=== PATIENT | male | born 1935 | race Caucasian/White ===

== ENCOUNTER 2018-04-22 08:43 | Inpatient (IN) | payer MEDICARE, MEDICAID ==
[~2018-04-22] VITALS: Ht 167.6 cm; Wt 79.4 kg
--- NOTE | 2018-04-22 08:50 | NUR ---
Pt is Farsi speaking, daughter translate.
--- NOTE | 2018-04-22 08:50 | NUR ---
Dr Lynch at the bedside for MSE.
[2018-04-22] MEDS ORDERED: MORPHINE SULFATE 2 MG/1 ML DISP.SYRIN ONE (08:52)
[2018-04-22] MEDS ORDERED: ONDANSETRON 4 MG/2 ML VIAL ONE (08:52)
[2018-04-22] MEDS ORDERED: MORPHINE SULFATE 2 MG/1 ML DISP.SYRIN IV ONE (09:00)
[2018-04-22] MEDS ORDERED: ONDANSETRON 4 MG/2 ML VIAL IV ONE (09:00)
[2018-04-22] MEDS ORDERED: SIMV20TA6 PO (09:03)
[2018-04-22] MEDS ORDERED: OLME1TAB16 PO (09:03)
[2018-04-22] MEDS ORDERED: MECL12.582 PO (09:03)
[2018-04-22] MEDS ORDERED: ATEN50TA PO (09:03)
[2018-04-22] MEDS ORDERED: COLC0.6T67 PO (09:03)
[2018-04-22] MEDS ORDERED: ALLO100T PO (09:03)
[2018-04-22] MEDS ORDERED: SITA50TA PO (09:03)
[2018-04-22] MEDS ORDERED: DICL75TA5 PO (09:03)
[2018-04-22] MEDS ORDERED: ESCI20TA37 PO (09:03)
[2018-04-22 09:17] LABS: BASOPHILS # (AUTO) 0.1 K/uL (0.0-8.0); BASOPHILS % (AUTO) 1.1 % (0.0-2.0); EOSINOPHILS # (AUTO) 0.2 K/uL (0.0-0.7); EOSINOPHILS % (AUTO) 2.3 % (0.0-7.0); HEMATOCRIT 39.5 % (36.7-47.1); HEMOGLOBIN 13.1 g/dL (12.5-16.3); LYMPHOCYTES # (AUTO) 2.1 K/uL (20.0-40.0); LYMPHOCYTES % (AUTO) 29.9 % (20.5-51.5); MEAN CORPUSCULAR HEMOGLOBIN 29.9 uug (23.8-33.4); MEAN CORPUSCULAR HGB CONC 33 g/dL (32.5-36.3); MEAN CORPUSCULAR VOLUME 90.4 fL (73.0-96.2); MONOCYTES # (AUTO) 0.6 K/uL (2.0-10.0); MONOCYTES % (AUTO) 8.7 % (0.0-11.0); NEUTROPHILS # (AUTO) 4.1 K/uL (1.8-8.9); PLATELET COUNT (AUTO) 159 K/uL (152-348); RED BLOOD CELL COUNT(AUTO) 4.37 MIL/uL (4.06-5.63); WHITE BLOOD COUNT (AUTO) 7.1 K/uL (3.6-10.2)
[2018-04-22 09:25] LABS: CARBON DIOXIDE 28 mmol/L (21-32); CHLORIDE 102 mmol/L (98-107); CREATININE 1.9 mg/dL (0.6-1.3); GLUCOSE 168 mg/dL (74-106); POTASSIUM 4.7 mmol/L (3.5-5.1); UREA NITROGEN, BLOOD 28 mg/dL (7-18)
[2018-04-22 09:30] LABS: ALANINE AMINOTRANSFERASE 14 U/L (16-63); ALKALINE PHOSPHATASE 71 U/L (50-136); ASPARTATE AMINOTRANSFERASE 15 U/L (15-37); BILIRUBIN,DIRECT 0.1 mg/dL (0.0-0.2); BILIRUBIN,TOTAL 0.4 mg/dL (0.2-1.0); TOTAL PROTEIN, SERUM 7.8 g/dL (6.4-8.2)
--- NOTE | 2018-04-22 10:25 | NUR ---
Dr Lynch spoke to A Pascle for admit to TELE. Pt and family aware of admit.
--- NOTE | 2018-04-22 10:45 | NUR ---
Patient is resting comfortably in bed with eyes closed, NAD noted.
--- NOTE | 2018-04-22 11:07 | NUR ---
patient was admitted to telemetry from emergency department.
[2018-04-22] MEDS ORDERED: ONDANSETRON 4 MG/2 ML VIAL IV PRN (11:45)
[2018-04-22] MEDS ORDERED: MORPHINE SULFATE 2 MG/1 ML DISP.SYRIN IV PRN (11:45)
[2018-04-22] MEDS ORDERED: ACETAMINOPHEN 325 MG TABLET PO PRN (11:45)
[2018-04-22] MEDS ORDERED: MECLIZINE HCL 12.5 MG TABLET PO PRN (11:45)
[2018-04-22] MEDS ORDERED: ZOLPIDEM 5 MG TABLET PO PRN (11:45)
[2018-04-22] MEDS ORDERED: DEXTROSE 50% 50 ML DISP.SYRIN IV PRN (11:45)
[2018-04-22] MEDS ORDERED: MAGNESIUM HYDROXIDE 30 ML LIQUID UDC PO PRN (11:45)
[2018-04-22] MEDS ORDERED: Z GUARD REMEDY PASTE 57 GM TUBE TOP PRN (11:45)
[2018-04-22] MEDS ORDERED: COLCHICINE 0.6 MG TABLET PO SCH (11:45)
[2018-04-22 12:25] VITALS: BP 146/82
[2018-04-22] MEDS: IV NS 1000 ML 1,000 ML IV PRN ×2 (13:09→20:30)
[2018-04-22 16:28] VITALS: BP 155/62
[2018-04-22] MEDS: INSULIN REGULAR, HUMAN 300 UNIT/3 ML VIAL SQ PRN ×2 (16:49→21:51)
[2018-04-22] MEDS: BLOOD SUGAR DIAGNOSTIC 1 EACH STRIP VI SCH ×2 (16:50→21:49)
[2018-04-22] MEDS: SIMVASTATIN 20 MG TABLET PO SCH (16:54)
--- NOTE | 2018-04-22 18:55 | NUR ---
pain management for patient right rib fracture pain. patient received information about measures to relive pain. ice packs were placed at pain site. patient educated about splinting while coughing. noted pauses on tele and notified dr. chirinos. patient is asymptomatics. morphine 2mg is effective for pain management, with no s/s of respiratory depression. Right bump noted on right knee from previous injury. skin is intact and no open lesions present. blood sugar was 147 and was covered with 2 units of insulin, regular. Doctor was at bedside and can be reached at [phone]
[2018-04-22 20:00] VITALS: BP 108/73
[2018-04-22] MEDS: HEPARIN SODIUM,PORCINE 5,000 UNITS/ML VIAL SQ SCH (20:29)
[2018-04-22] MEDS: HYDROCODONE/APAP 5-325MG TABLET PO PRN (20:30)
[2018-04-22] MEDS: ATENOLOL 50 MG TABLET PO SCH (20:40)
[2018-04-23] VITALS: BP 120/67
[2018-04-23] MEDS: HYDROCODONE/APAP 5-325MG TABLET PO PRN ×2 (02:22→06:32)
[2018-04-23 04:00] VITALS: BP 117/64
[2018-04-23] MEDS: PANTOPRAZOLE SODIUM 40 MG TABLET.DR PO SCH (06:29)
[2018-04-23 06:41] LABS: EOSINOPHILS # (AUTO) 0.2 K/uL (0.0-0.7); MONOCYTES # (AUTO) 0.6 K/uL (2.0-10.0); NEUTROPHILS # (AUTO) 3.1 K/uL (1.8-8.9); PLATELET COUNT (AUTO) 133 K/uL (152-348)
[2018-04-23 06:52] LABS: BASOPHILS % (AUTO) 0.7 % (0.0-2.0); EOSINOPHILS % (AUTO) 2.4 % (0.0-7.0); LYMPHOCYTES # (AUTO) 2.4 K/uL (20.0-40.0); LYMPHOCYTES % (AUTO) 38.7 % (20.5-51.5); MEAN CORPUSCULAR HEMOGLOBIN 29.8 uug (23.8-33.4); MEAN CORPUSCULAR HGB CONC 33 g/dL (32.5-36.3); MEAN CORPUSCULAR VOLUME 90.1 fL (73.0-96.2); MONOCYTES % (AUTO) 8.9 % (0.0-11.0); NEUTROPHILS % (AUTO) 49.3 % (38.5-71.5); RED BLOOD CELL COUNT(AUTO) 3.83 MIL/uL (4.06-5.63); WHITE BLOOD COUNT (AUTO) 6.3 K/uL (3.6-10.2)
[2018-04-23 06:55] LABS: HEMATOCRIT 34.5 % (36.7-47.1); HEMOGLOBIN 11.4 g/dL (12.5-16.3)
[2018-04-23 06:56] LABS: CARBON DIOXIDE 31 mmol/L (21-32); CHLORIDE 103 mmol/L (98-107); CHOLESTEROL 115 mg/dL (<200); CREATININE 1.8 mg/dL (0.6-1.3); GLUCOSE 116 mg/dL (74-106); HDL CHOLESTEROL 27 mg/dL (40-60); MAGNESIUM 1.8 mg/dL (1.8-2.4); POTASSIUM 4.6 mmol/L (3.5-5.1); TRIGLYCERIDES 140 MG/DL (30-150); UREA NITROGEN, BLOOD 29 mg/dL (7-18)
[2018-04-23 07:01] LABS: THYROID STIMULATING HORMONE 4.627 mIU/mL (0.358-3.740)
--- NOTE | 2018-04-23 07:30 | NUR ---
pt sleep intermittenly, turning in bed and in pain, given norco x 3 overnight, continue with iv fluids uses urinal at night , had x1 episode of pause at begining of shift ,asymptomatic except with the shoulder pain. otherwise sinus felecia /sinus rhythm. vss,afebrile.
[2018-04-23] MEDS: LINAGLIPTIN 5 MG TABLET PO SCH (08:13)
[2018-04-23] MEDS: BLOOD SUGAR DIAGNOSTIC 1 EACH STRIP VI SCH ×4 (08:13→20:24)
[2018-04-23] MEDS: ESCITALOPRAM OXALATE 10 MG TABLET PO SCH (08:14)
[2018-04-23] MEDS: ASPIRIN EC 81 MG TABLET.DR PO SCH (08:14)
[2018-04-23] MEDS: ATENOLOL 50 MG TABLET PO SCH (08:16)
[2018-04-23] MEDS: HEPARIN SODIUM,PORCINE 5,000 UNITS/ML VIAL SQ SCH ×2 (08:19→20:25)
[2018-04-23] MEDS: LOSARTAN POTASSIUM 50 MG TABLET PO SCH (08:21)
[2018-04-23] MEDS: HYDROCHLOROTHIAZIDE 12.5 MG CAPSULE PO SCH (08:27)
--- NOTE | 2018-04-23 08:30 | NUR ---
Pt is in no acute distress. Held Atenolol secondary to slow HR. Call light is within reach.
[2018-04-23] MEDS ORDERED: Medication Not On Formulary EA (Sitagliptin Phosphate (Januvia) 25 MG) PO SCH (09:00)
[2018-04-23] MEDS ORDERED: Medication Not On Formulary EA (Escitalopram Oxalate 1 TAB) PO SCH (09:00)
[2018-04-23] MEDS ORDERED: DICLOFENAC 75 MG TABLET.DR PO SCH (09:00)
[2018-04-23 11:11] VITALS: BP 122/66
[2018-04-23 15:10] VITALS: BP 100/54
[2018-04-23] MEDS: INSULIN REGULAR, HUMAN 300 UNIT/3 ML VIAL SQ PRN (16:10)
[2018-04-23] MEDS: SIMVASTATIN 20 MG TABLET PO SCH (16:58)
--- NOTE | 2018-04-23 18:30 | NUR ---
Pt is in no acute distress. Dr Dennis saw pt DC atenolol and D/C tele.
[2018-04-23] MEDS ORDERED: ALLO100T PO (19:03)
--- NOTE | 2018-04-23 19:20 | NUR ---
Received patient lying in bed. Asleep but easily arouse to verbal stimuli. Alert and oriented. Farsi speaking only. Mild pain on right rib cage but tolerable. IV site on right AC intact and patent. IVF infusing. Safety measure initiated and call velasco withn reach.
[2018-04-23 20:47] VITALS: BP 147/75
--- NOTE | 2018-04-24 02:40 | NUR ---
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 Patient noted sitting on the floor close to the left side of his bed. Per patient, he was turning on his left side in bed and slide of the bed landing on his knees first. Denies hitting his head. ROM on BUE and BLE WNL. Denies any pain or SOB. VS Taken and WNL. Denies any pain or SOB. No injury sustained noted from the fall.ILEANA Barbour translated for this nurse as patient is Farsi speaking only. @0240 - Dr. Meredith notified of fall incident with no new orders given. Continue to monitor patient.
[2018-04-24] MEDS: IV NS 1000 ML 1,000 ML IV PRN (03:40)
[2018-04-24 03:52] VITALS: BP 140/57
--- NOTE | 2018-04-24 04:40 | NUR ---
Patient IV site on right AC noted to be leaking. Removed IV site on right AC. Started new IV site on left hand #22gauge. IVF infusing.
[2018-04-24] MEDS: PANTOPRAZOLE SODIUM 40 MG TABLET.DR PO SCH (06:02)
[2018-04-24 06:24] LABS: BASOPHILS % (AUTO) 0.7 % (0.0-2.0); EOSINOPHILS # (AUTO) 0.1 K/uL (0.0-0.7); EOSINOPHILS % (AUTO) 2.2 % (0.0-7.0); HEMATOCRIT 36.5 % (36.7-47.1); HEMOGLOBIN 12.2 g/dL (12.5-16.3); LYMPHOCYTES # (AUTO) 1.5 K/uL (20.0-40.0); LYMPHOCYTES % (AUTO) 22.9 % (20.5-51.5); MEAN CORPUSCULAR HEMOGLOBIN 29.7 uug (23.8-33.4); MEAN CORPUSCULAR HGB CONC 33 g/dL (32.5-36.3); MEAN CORPUSCULAR VOLUME 89.2 fL (73.0-96.2); MONOCYTES # (AUTO) 0.6 K/uL (2.0-10.0); MONOCYTES % (AUTO) 8.5 % (0.0-11.0); NEUTROPHILS # (AUTO) 4.4 K/uL (1.8-8.9); NEUTROPHILS % (AUTO) 65.7 % (38.5-71.5); PLATELET COUNT (AUTO) 136 K/uL (152-348); RED BLOOD CELL COUNT(AUTO) 4.09 MIL/uL (4.06-5.63); WHITE BLOOD COUNT (AUTO) 6.7 K/uL (3.6-10.2)
--- NOTE | 2018-04-24 06:35 | NUR ---
Alert and oriented. Farsi speaking only. In no acute distress. Mild pain on right rib cage area and tolerable per pt. On O2 at 2LPM via NC in place. O2 sat at 100%. IV site on right AC remains intact and patent. IVF infusing. Needs assessed and attended to. Safety measure maintained and call velasco within reach.
[2018-04-24] MEDS: BLOOD SUGAR DIAGNOSTIC 1 EACH STRIP VI SCH ×3 (06:38→17:29)
[2018-04-24 06:46] LABS: ALANINE AMINOTRANSFERASE 15 U/L (16-63); ALKALINE PHOSPHATASE 69 U/L (50-136); ASPARTATE AMINOTRANSFERASE 19 U/L (15-37); BILIRUBIN,TOTAL 0.4 mg/dL (0.2-1.0); CARBON DIOXIDE 31 mmol/L (21-32); CHLORIDE 104 mmol/L (98-107); CREATININE 1.7 mg/dL (0.6-1.3); GLUCOSE 134 mg/dL (74-106); MAGNESIUM 1.8 mg/dL (1.8-2.4); PHOSPHOROUS 3.4 mg/dL (2.5-4.9); POTASSIUM 4.4 mmol/L (3.5-5.1); TOTAL PROTEIN, SERUM 6.8 g/dL (6.4-8.2); UREA NITROGEN, BLOOD 26 mg/dL (7-18)
--- NOTE | 2018-04-24 07:00 | NUR ---
INFORMED PATIENT DAUGHTER SULLY REGARDING FALL INCIDENT AND STATES UNDERSTANDING.
[2018-04-24] MEDS ORDERED: ALLOPURINOL 100 MG TABLET PO SCH (09:00)
[2018-04-24] MEDS ORDERED: CYANOCOBALAMIN 1000 MCG/ML VIAL IM SCH (09:00)
[2018-04-24] MEDS: LINAGLIPTIN 5 MG TABLET PO SCH (09:07)
[2018-04-24] MEDS: LOSARTAN POTASSIUM 50 MG TABLET PO SCH (09:07)
[2018-04-24] MEDS: ESCITALOPRAM OXALATE 10 MG TABLET PO SCH (09:08)
[2018-04-24] MEDS: HEPARIN SODIUM,PORCINE 5,000 UNITS/ML VIAL SQ SCH (09:09)
[2018-04-24] MEDS: HYDROCHLOROTHIAZIDE 12.5 MG CAPSULE PO SCH (09:13)
[2018-04-24] MEDS: ASPIRIN EC 81 MG TABLET.DR PO SCH (09:50)
[2018-04-24 11:04] VITALS: BP 125/73
[2018-04-24 15:07] VITALS: BP 119/69
[2018-04-24] MEDS: SIMVASTATIN 20 MG TABLET PO SCH (17:34)
[2018-04-24 18:21] VITALS: BP 119/69
--- NOTE | 2018-04-24 18:29 | NUR ---
patient discharged home with daughter, júnior. patient is in stable condition and denies any pain or discomfort at this time. patient received exit care package, along with valuable and belongings. patient iv access was removed and patient id band was removed as well. patient has full understanding of health and follow up instructions by MD. patient agrees to follow up with pcp within a week.
== END 2018-04-24 18:32 | disposition home health service (06) | DRG 183 ==
LOC: ER 08:46 → TELE 10:54 → MED 04-23 18:15
PROVIDERS: ADMIT Hospitalist; ATTEND Hospitalist
DX: S22.41XA Multiple fractures of ribs, right side, initial encounter for closed fracture (principal); I21.A1 Myocardial infarction type 2; N17.0 Acute kidney failure with tubular necrosis; W18.39XA Other fall on same level, initial encounter; Y93.E1 Activity, personal bathing and showering; Y92.012 Bathroom of single-family (private) house as the place of occurrence of the external cause; M10.9 Gout, unspecified; E11.22 Type 2 diabetes mellitus with diabetic chronic kidney disease; I13.10 Hypertensive heart and chronic kidney disease without heart failure, with stage 1 through stage 4 chronic kidney disease, or unspecified chronic kidney disease; N18.9 Chronic kidney disease, unspecified; Z79.84 Long term (current) use of oral hypoglycemic drugs; E11.42 Type 2 diabetes mellitus with diabetic polyneuropathy; R29.6 Repeated falls; E11.319 Type 2 diabetes mellitus with unspecified diabetic retinopathy without macular edema; F32.9 Major depressive disorder, single episode, unspecified; Z90.2 Acquired absence of lung [part of]; R42 Dizziness and giddiness; K80.20 Calculus of gallbladder without cholecystitis without obstruction; E03.9 Hypothyroidism, unspecified; K44.9 Diaphragmatic hernia without obstruction or gangrene; I44.0 Atrioventricular block, first degree; M22.40 Chondromalacia patellae, unspecified knee; Z87.01 Personal history of pneumonia (recurrent); E11.65 Type 2 diabetes mellitus with hyperglycemia; E78.5 Hyperlipidemia, unspecified
CPT/HCPCS: 36415; 70030-TC; 71045; 71250; 73030; 83735; 84100; 84443; 85025; 85730; 93005; 93307; 97116; 97530; A4663; G0378; J1644; J1815; J2270; J2405; J3420; J7030; J8499

== ENCOUNTER 2022-03-14 10:21 | Inpatient (IN) | payer MEDICARE, OTHER ==
[~2022-03-14] VITALS: Ht 162.6 cm; Wt 78.5 kg
[~2022-03-14 10:21] MED LIST: ALLO100T PO; DICL75TA5 PO; ESCI20TA44 PO; MECL-225 PO; OLME1TAB16 PO; SIMV-46 PO; SITA50TA PO
[2022-03-14] MEDS ORDERED: ACETAMINOPHEN 325 MG TABLET PO ONE (10:45)
--- NOTE | 2022-03-14 10:50 | NUR ---
Pt arrived accompanied by daughter with c/o generalized body pain and weakness, cough with clear mucus that started last night 03/13/22. Denies n/v and acute discomfort. No SOB noted. ERMD in room for MSE.
[2022-03-14] MEDS ORDERED: ACETAMINOPHEN 325 MG TABLET ONE (10:57)
[2022-03-14 11:03] LABS: HEMATOCRIT 38.1 % (36.7-47.1); MEAN CORPUSCULAR HEMOGLOBIN 30.1 uug (23.8-33.4); MEAN CORPUSCULAR VOLUME 90.5 fL (73.0-96.2); PLATELET COUNT (AUTO) 141 K/uL (152-348)
[2022-03-14] MEDS ORDERED: SITA50TA PO (11:17)
[2022-03-14] MEDS ORDERED: SIMV-49 PO (11:17)
[2022-03-14] MEDS ORDERED: ERGO500040 PO (11:17)
[2022-03-14] MEDS ORDERED: TRAM50TA2 PO (11:17)
[2022-03-14] MEDS ORDERED: CARB1TAB21 PO (11:17)
[2022-03-14] MEDS ORDERED: LOSA100T31 PO (11:17)
[2022-03-14] MEDS ORDERED: GABA-532 PO (11:17)
[2022-03-14] MEDS ORDERED: DAPA5TAB PO (11:17)
[2022-03-14] MEDS ORDERED: AMLO2.5T4 PO (11:17)
[2022-03-14 11:18] LABS: CARBON DIOXIDE 25 mmol/L (21-32); CHLORIDE 102 mmol/L (98-107); CREATININE 1.7 mg/dL (0.6-1.3); GLUCOSE 173 mg/dL (74-106); POTASSIUM 4.3 mmol/L (3.5-5.1); UREA NITROGEN, BLOOD 23 mg/dL (7-18)
[2022-03-14] MEDS ORDERED: IV NORMAL SALINE 500 ML BAG IV ONE (13:00)
[2022-03-14 13:25] LABS: *BILIRUBIN,URIN NEGATIVE (NEGATIVE); *BLOOD, URINE NEGATIVE (NEGATIVE); *CLARITY,URINE CLEAR (CLEAR); *COLOR,URINE YELLOW (YELLOW); *KETONES,URINE NEGATIVE (NEGATIVE); *UROBILINOGEN,URINE 0.2 E.U./dl (NORMAL); LEUKOCYTE ESTERASE ,URINE NEGATIVE (NEGATIVE); NITRITE, URINE NEGATIVE (NEGATIVE)
[2022-03-14 13:30] LABS: UGLUCOSE 2+ (NEGATIVE)
[2022-03-14 13:31] LABS: BACTERIA,URINE NONE SEEN /HPF (NONE SEEN); RBC,URINE 0-3 /HPF (0-3); SQUAMOUS EPITHELIAL CELL,UR NONE SEEN /HPF (NONE SEEN); WBC,URINE 0-3 /HPF (0-3)
[2022-03-14] MEDS ORDERED: DEXAMETHASONE SOD PHOSPHATE 4 MG INJ IV ONE (14:00)
[2022-03-14] MEDS ORDERED: ASPIRIN 325 MG TABLET PO ONE (14:00)
[2022-03-14] MEDS ORDERED: DEXAMETHASONE 4 MG TABLET ONE (14:09)
[2022-03-14] MEDS ORDERED: ASPIRIN 325 MG TABLET ONE (14:10)
[2022-03-14] MEDS ORDERED: DEXAMETHASONE SOD PHOSPHATE 4 MG INJ ONE (14:11)
--- NOTE | 2022-03-14 15:45 | NUR ---
report given to ILEANA Gonzalez.
[2022-03-14] MEDS ORDERED: MAGNESIUM HYDROXIDE 30 ML LIQUID UDC PO PRN (16:00)
[2022-03-14] MEDS ORDERED: ONDANSETRON 4 MG/2 ML VIAL IV PRN (16:00)
[2022-03-14] MEDS ORDERED: REMEDY ESSENTIAL ZINC PASTE 113 GM TP PRN (16:00)
[2022-03-14] MEDS ORDERED: ENOXAPARIN SODIUM 40 MG/0.4 ML DISP.SYRIN SQ SCH ×2 (16:00→16:28)
[2022-03-14] MEDS ORDERED: MORPHINE SULFATE 2 MG/1 ML DISP.SYRIN IV PRN (16:00)
[2022-03-14] MEDS ORDERED: ACETAMINOPHEN 325 MG TABLET PO PRN (16:00)
[2022-03-14] MEDS ORDERED: ENOXAPARIN SODIUM 40 MG/0.4 ML DISP.SYRIN SQ ONE (16:16)
--- NOTE | 2022-03-14 16:50 | NUR ---
Pt denied pain and acute discomfort. No SOB noted. Breathing even and unlabored. Skin intact. Transported up to Telemetry Rm 324 under the care of Dr. Gray. Daughter Gail had been informed.
[2022-03-14 17:05] VITALS: BP 147/85
--- NOTE | 2022-03-14 17:14 | NUR ---
86 year old male pt received to room 324 for covid positive pt is axox3 vs are stable call light with in reach.md notified for the admission
[2022-03-14] MEDS ORDERED: TRAMADOL HCL 50 MG TABLET PO PRN (18:45)
[2022-03-14] MEDS ORDERED: MECLIZINE HCL 12.5 MG TABLET PO PRN (18:45)
[2022-03-14] MEDS: CARBIDOPA/LEVODOPA 25-100MG TABLET PO SCH (19:32)
[2022-03-14] MEDS: GABAPENTIN 100 MG CAPSULE PO SCH (19:32)
[2022-03-14 20:00] VITALS: BP 133/72
[2022-03-15] VITALS: BP 145/76
[2022-03-15 04:00] VITALS: BP 160/95
[2022-03-15] MEDS: PANTOPRAZOLE SODIUM 40 MG TABLET.DR PO SCH (06:04)
[2022-03-15 06:46] LABS: HEMATOCRIT 36.4 % (36.7-47.1); MEAN CORPUSCULAR HEMOGLOBIN 30.2 uug (23.8-33.4); MEAN CORPUSCULAR VOLUME 90.1 fL (73.0-96.2); PLATELET COUNT (AUTO) 146 K/uL (152-348)
[2022-03-15 06:55] LABS: CARBON DIOXIDE 25 mmol/L (21-32); CHLORIDE 105 mmol/L (98-107); CREATININE 1.7 mg/dL (0.6-1.3); GLUCOSE 145 mg/dL (74-106); MAGNESIUM 2.2 mg/dL (1.8-2.4); PHOSPHOROUS 4.3 mg/dL (2.5-4.9); POTASSIUM 4.4 mmol/L (3.5-5.1); UREA NITROGEN, BLOOD 30 mg/dL (7-18)
[2022-03-15 07:27] LABS: THYROID STIMULATING HORMONE 0.892 mIU/mL (0.358-3.740)
--- NOTE | 2022-03-15 08:00 | NUR ---
Awake, alert, oriented x 4. Farsi speaking. Room air with O2 sat of 95%. Denies chest pain. Verbalized feeling okay.
[2022-03-15] MEDS: ASPIRIN 81 MG TAB.CHEW PO SCH (08:51)
[2022-03-15] MEDS: DEXAMETHASONE SOD PHOSPHATE 4 MG INJ IV SCH (08:51)
[2022-03-15] MEDS: LOSARTAN POTASSIUM 50 MG TABLET PO SCH (08:52)
[2022-03-15] MEDS: GABAPENTIN 100 MG CAPSULE PO SCH ×3 (08:53→17:25)
[2022-03-15] MEDS: AMLODIPINE 2.5 MG TABLET PO SCH (08:53)
[2022-03-15] MEDS: ESCITALOPRAM OXALATE 10 MG TABLET PO SCH (08:53)
[2022-03-15] MEDS: LINAGLIPTIN 5 MG TABLET PO SCH (08:54)
[2022-03-15] MEDS: ENOXAPARIN SODIUM 30 MG/0.3 ML DISP.SYRIN SUBCUT SCH (08:56)
[2022-03-15] MEDS: CARBIDOPA/LEVODOPA 25-100MG TABLET PO SCH ×3 (08:58→17:25)
[2022-03-15] MEDS ORDERED: Medication Not On Formulary EA (Losartan Potassium 1 TAB) PO SCH (09:00)
[2022-03-15] MEDS ORDERED: Medication Not On Formulary EA (Escitalopram Oxalate 1 TAB) PO SCH (09:00)
[2022-03-15 10:43] VITALS: BP 179/79
--- NOTE | 2022-03-15 12:30 | NUR ---
With fair appetite. Denies pain
[2022-03-15] MEDS: hydrALAZINE HCL 25 MG TABLET PO PRN (12:54)
--- NOTE | 2022-03-15 13:00 | NUR ---
Noted elevated BP, Hydralazine po given as needed
[2022-03-15 15:14] VITALS: BP 124/77
--- NOTE | 2022-03-15 18:15 | NUR ---
Latest BP 124/77. Room air maintained with O2 sat of 93-95%. No shortness of breath noted. With fair appetite. Afebrile
[2022-03-15 20:00] VITALS: BP 159/98
[2022-03-15] MEDS: SIMVASTATIN 40 MG TABLET PO SCH (21:15)
[2022-03-16] VITALS: BP 148/89
[2022-03-16 04:00] VITALS: BP 137/82
--- NOTE | 2022-03-16 05:54 | NUR ---
Patient asleep but arousable, no sob no chest pain, no complain of pain, afebrile, no episode of coughing noted at this time, remains on droplet precaution due positive for Covid 19, patient continent of bladder, sinus rhythm with 1st degree av block hr of 63, cont to monitor.
[2022-03-16] MEDS: PANTOPRAZOLE SODIUM 40 MG TABLET.DR PO SCH (06:09)
[2022-03-16 06:51] LABS: HEMATOCRIT 35.7 % (36.7-47.1); MEAN CORPUSCULAR HEMOGLOBIN 30.5 uug (23.8-33.4); MEAN CORPUSCULAR VOLUME 90.3 fL (73.0-96.2); PLATELET COUNT (AUTO) 162 K/uL (152-348)
[2022-03-16 07:13] LABS: CHLORIDE 103 mmol/L (98-107); CREATININE 1.7 mg/dL (0.6-1.3); GLUCOSE 161 mg/dL (74-106); MAGNESIUM 2.3 mg/dL (1.8-2.4); PHOSPHOROUS 3.5 mg/dL (2.5-4.9); POTASSIUM 4.2 mmol/L (3.5-5.1); UREA NITROGEN, BLOOD 40 mg/dL (7-18)
[2022-03-16 07:24] LABS: CARBON DIOXIDE 26 mmol/L (21-32)
[2022-03-16 09:30] VITALS: BP 159/85
[2022-03-16] MEDS: DEXAMETHASONE SOD PHOSPHATE 4 MG INJ IV SCH (09:32)
[2022-03-16] MEDS: ESCITALOPRAM OXALATE 10 MG TABLET PO SCH (09:33)
[2022-03-16] MEDS: ASPIRIN 81 MG TAB.CHEW PO SCH (09:33)
[2022-03-16] MEDS: LINAGLIPTIN 5 MG TABLET PO SCH (09:33)
[2022-03-16] MEDS: GABAPENTIN 100 MG CAPSULE PO SCH ×3 (09:33→16:36)
[2022-03-16] MEDS: CARBIDOPA/LEVODOPA 25-100MG TABLET PO SCH ×3 (09:33→16:36)
[2022-03-16] MEDS: ENOXAPARIN SODIUM 30 MG/0.3 ML DISP.SYRIN SUBCUT SCH (09:39)
[2022-03-16] MEDS: AMLODIPINE 2.5 MG TABLET PO SCH (10:00)
[2022-03-16] MEDS: LOSARTAN POTASSIUM 50 MG TABLET PO SCH (10:01)
--- NOTE | 2022-03-16 11:30 | NUR ---
Pt is a/o x 3-4, Farsi speaking. Spoke with daughter to bring home medication Farxiga, picked up by security desk. Daughter has been updated and asked her to notify us if there is anything the pt wants or verbalizes he needs due to language barrier. Pt does not complain of any chest pain. His speech is clear and mood cooperative with care. Pt is overall very pleasant. No signs of acute distress. Call light within reach, will continue to monitor.
[2022-03-16 11:55] VITALS: BP 176/89
[2022-03-16] MEDS: FARXIGA 5 MG PO SCH (13:26)
[2022-03-16] MEDS: hydrALAZINE HCL 25 MG TABLET PO PRN (13:26)
[2022-03-16 16:00] VITALS: BP 135/85
[2022-03-16 20:00] VITALS: BP 143/88
[2022-03-16] MEDS: SIMVASTATIN 40 MG TABLET PO SCH (20:52)
--- NOTE | 2022-03-16 21:40 | NUR ---
Patient awake no sob no chest pain, no complain of pain, on tele monitor sinus rhythm with 1st degree av block, uses urinal for bladder elimination, on droplet precaution for covid 19 infection, call light within reach, cont to monitor. BP stable.
[2022-03-17] VITALS: BP 137/94
--- NOTE | 2022-03-17 05:50 | NUR ---
Patient asleep but arousable, no sob no chest pain, no complain of pain, afebrile, no episode of coughing noted at this time, remains on droplet precaution due positive for Covid 19, patient continent of bladder, sinus rhythm with 1st degree av block hr of 75 cont to monitor.
[2022-03-17 07:11] LABS: HEMATOCRIT 36.5 % (36.7-47.1); MEAN CORPUSCULAR HEMOGLOBIN 30.5 uug (23.8-33.4); PLATELET COUNT (AUTO) 172 K/uL (152-348)
[2022-03-17 07:25] LABS: CARBON DIOXIDE 29 mmol/L (21-32); CHLORIDE 102 mmol/L (98-107); CREATININE 1.7 mg/dL (0.6-1.3); GLUCOSE 155 mg/dL (74-106); MAGNESIUM 2.2 mg/dL (1.8-2.4); PHOSPHOROUS 4.1 mg/dL (2.5-4.9); POTASSIUM 4.7 mmol/L (3.5-5.1); UREA NITROGEN, BLOOD 41 mg/dL (7-18)
[2022-03-17] MEDS: PANTOPRAZOLE SODIUM 40 MG TABLET.DR PO SCH (07:39)
[2022-03-17 08:00] VITALS: BP 158/95
[2022-03-17] MEDS: ENOXAPARIN SODIUM 30 MG/0.3 ML DISP.SYRIN SUBCUT SCH (08:52)
[2022-03-17] MEDS: ASPIRIN 81 MG TAB.CHEW PO SCH (08:53)
[2022-03-17] MEDS: LINAGLIPTIN 5 MG TABLET PO SCH (08:53)
[2022-03-17] MEDS: ESCITALOPRAM OXALATE 10 MG TABLET PO SCH (08:53)
[2022-03-17] MEDS: GABAPENTIN 100 MG CAPSULE PO SCH (08:54)
[2022-03-17] MEDS: CARBIDOPA/LEVODOPA 25-100MG TABLET PO SCH (08:54)
[2022-03-17] MEDS: DEXAMETHASONE SOD PHOSPHATE 4 MG INJ IV SCH (08:54)
[2022-03-17 08:59] VITALS: BP 158/75
[2022-03-17] MEDS: AMLODIPINE 2.5 MG TABLET PO SCH (08:59)
[2022-03-17] MEDS: LOSARTAN POTASSIUM 50 MG TABLET PO SCH (08:59)
[2022-03-17] MEDS: FARXIGA 5 MG PO SCH (09:00)
[2022-03-17] MEDS ORDERED: AZIT1PAC9 PO (10:43)
[2022-03-17] MEDS ORDERED: ASPI81TA31 PO (10:43)
--- NOTE | 2022-03-17 12:27 | NUR ---
patient has no pain or distress, walks to the bathroom, stable condition, stable vital signs. No symptoms are appearing, no SOB.
[2022-03-19] MEDS ORDERED: ERGOCALCIFEROL 50,000 UNIT CAPSULE PO SCH (09:00)
== END 2022-03-17 13:40 | disposition home or self-care (01) | DRG 177 ==
LOC: ER 10:21 → TELE3 16:21 → MEDSURG3 03-17 09:06
PROVIDERS: ADMIT Student in an Organized Health Care Education/Training Program; ATTEND Nurse Practitioner Acute Care
DX: U07.1 COVID-19 (principal); I21.A1 Myocardial infarction type 2; J12.82 Pneumonia due to coronavirus disease 2019; N17.9 Acute kidney failure, unspecified; J98.11 Atelectasis; N18.9 Chronic kidney disease, unspecified; E78.5 Hyperlipidemia, unspecified; E11.22 Type 2 diabetes mellitus with diabetic chronic kidney disease; I12.9 Hypertensive chronic kidney disease with stage 1 through stage 4 chronic kidney disease, or unspecified chronic kidney disease; F32.A Depression, unspecified; G20 Parkinson's disease; Z79.84 Long term (current) use of oral hypoglycemic drugs
CPT/HCPCS: 36415; 71045; 83735; 84100; 84443; 84484; 85025; 87400; 93005; A4663; G0378; J1100; J1650; J8540

== ENCOUNTER 2023-04-10 05:53 | Inpatient (IN) | payer MEDICARE, OTHER ==
[~2023-04-10] VITALS: Ht 165.1 cm; Wt 72.3 kg
[~2023-04-10 05:53] MED LIST changes: -ALLO100T PO; +AMLO2.5T4 PO; +ASPI81TA31 PO; +AZIT1PAC9 PO; +CARB1TAB21 PO; +DAPA5TAB PO; -DICL75TA5 PO; +ERGO500040 PO; +GABA-532 PO; +LOSA100T31 PO; -OLME1TAB16 PO; -SIMV-46 PO; +SIMV-49 PO; +TRAM50TA2 PO
[2023-04-10] MEDS ORDERED: IV NORMAL SALINE 1000 ML BAG IV ONE (06:15)
[2023-04-10] MEDS ORDERED: LINA290C PO (06:19)
[2023-04-10 06:37] LABS: CALCIUM 8.9 mg/dL (8.5-10.1); CARBON DIOXIDE 24 mmol/L (21-32); CHLORIDE 103 mmol/L (98-107); CREATININE 1.8 mg/dL (0.6-1.3); GLUCOSE 164 mg/dL (74-106); POTASSIUM 4.3 mmol/L (3.5-5.1); SODIUM SERUM 136 mmol/L (136-145); UREA NITROGEN, BLOOD 28 mg/dL (7-18)
[2023-04-10 06:41] LABS: BASOPHILS % (AUTO) 0.7 % (0.0-2.0); EOSINOPHILS # (AUTO) 0.1 K/uL (0.0-0.7); EOSINOPHILS % (AUTO) 1.1 % (0.0-7.0); HEMATOCRIT 33.8 % (36.7-47.1); HEMOGLOBIN 11.2 g/dL (12.5-16.3); LYMPHOCYTES # (AUTO) 0.4 K/uL (0.8-4.8); LYMPHOCYTES % (AUTO) 6.8 % (20.5-51.5); MEAN CORPUSCULAR HEMOGLOBIN 30.4 uug (23.8-33.4); MEAN CORPUSCULAR HGB CONC 33 g/dL (32.5-36.3); MEAN CORPUSCULAR VOLUME 91.4 fL (73.0-96.2); MONOCYTES # (AUTO) 0.4 K/uL (0.1-1.30); MONOCYTES % (AUTO) 7.8 % (0.0-11.0); NEUTROPHILS # (AUTO) 4.5 K/uL (1.8-8.9); NEUTROPHILS % (AUTO) 83.6 % (38.5-71.5); PLATELET COUNT (AUTO) 112 K/uL (152-348); RED CELL DISTRIBUTION WIDTH 13.9 % (12.1-16.2); WHITE BLOOD COUNT (AUTO) 5.4 K/uL (3.6-10.2)
[2023-04-10 06:44] LABS: DIFFERENTIAL COMMENT 1
[2023-04-10 06:47] LABS: *BILIRUBIN,URIN NEGATIVE (NEGATIVE); *BLOOD, URINE TRACE (NEGATIVE); *CLARITY,URINE CLEAR (CLEAR); *COLOR,URINE YELLOW (YELLOW); *KETONES,URINE TRACE (NEGATIVE); *PROTEIN,URINE 2+ (NEGATIVE); *UROBILINOGEN,URINE 0.2 E.U./dl (NORMAL); LEUKOCYTE ESTERASE ,URINE NEGATIVE (NEGATIVE); NITRITE, URINE NEGATIVE (NEGATIVE); UGLUCOSE 3+ (NEGATIVE)
[2023-04-10 06:51] LABS: ALANINE AMINOTRANSFERASE 22 U/L (16-63); ALBUMIN 3.5 g/dL (3.4-5.0); ALKALINE PHOSPHATASE 64 U/L (50-136); ASPARTATE AMINOTRANSFERASE 14 U/L (15-37); BILIRUBIN,DIRECT 0.2 mg/dL (0.0-0.2); BILIRUBIN,TOTAL 0.4 mg/dL (0.2-1.0); NT-PRO BNP 465 pg/mL (0-125); TOTAL PROTEIN, SERUM 6.8 g/dL (6.4-8.2)
[2023-04-10] MEDS ORDERED: ASPIRIN 81 MG TAB.CHEW PO ONE (08:45)
[2023-04-10] MEDS ORDERED: ASPIRIN 81 MG TAB.CHEW ONE (08:57)
[2023-04-10 08:58] LABS: BACTERIA,URINE MODERATE /HPF (NONE SEEN); RBC,URINE 0-3 /HPF (0-3); SQUAMOUS EPITHELIAL CELL,UR FEW /HPF (NONE SEEN); WBC,URINE 0-3 /HPF (0-3); YEAST,URINE BUDDING YEAST /HPF (NONE SEEN)
[2023-04-10] MEDS ORDERED: SITA100T PO (09:27)
[2023-04-10 09:50] VITALS: BP 120/81; TEMP 98.5; O2SAT 96
[2023-04-10] MEDS ORDERED: ACETAMINOPHEN 325 MG TABLET PO PRN ×2 (15:30→16:30)
[2023-04-10 15:41] VITALS: BP_SYST 109; BP_SYST 155; BP_DIAS 40; BP_DIAS 78; TEMP 101.2; TEMP 98.4; O2SAT 97; O2SAT 98
[2023-04-10] MEDS ORDERED: HYDROCODONE/APAP 5-325MG TABLET PO PRN (16:30)
[2023-04-10] MEDS ORDERED: ONDANSETRON 4 MG/2 ML VIAL IV PRN (16:30)
[2023-04-10] MEDS: CARBIDOPA/LEVODOPA 25-100MG TABLET PO SCH (16:44)
[2023-04-10] MEDS: AMLODIPINE 2.5 MG TABLET PO SCH (16:44)
[2023-04-10] MEDS ORDERED: DEXTROSE 50% 50 ML DISP.SYRIN IV PRN (17:30)
[2023-04-10] MEDS ORDERED: INSULIN REGULAR, HUMAN 300 UNIT/3 ML VIAL SQ PRN (17:30)
[2023-04-10] MEDS ORDERED: FLUCONAZOLE 200 MG/NS 100ML IV 100 MG in PREMIXED 1 EACH IV SCH (19:45)
[2023-04-10 20:00] VITALS: BP 131/69; TEMP 99.4; O2SAT 96
[2023-04-10] MEDS ORDERED: FLUCONAZOLE 200 MG/100 ML PIGGYBACK ONE (20:49)
[2023-04-10] MEDS: DOCUSATE SODIUM 100 MG CAPSULE PO SCH (20:57)
[2023-04-10] MEDS: SIMVASTATIN 40 MG TABLET PO SCH (20:57)
[2023-04-10] MEDS: HEPARIN SODIUM,PORCINE 5,000 UNITS/ML VIAL SQ SCH (21:00)
[2023-04-10] MEDS: BLOOD SUGAR DIAGNOSTIC 1 EACH STRIP VI SCH (21:02)
[2023-04-11] VITALS: BP 156/86; TEMP 99.4; O2SAT 96
[2023-04-11 04:00] VITALS: BP 129/72; TEMP 99.1; O2SAT 95
[2023-04-11] MEDS: PANTOPRAZOLE SODIUM 40 MG TABLET.DR PO SCH (06:04)
[2023-04-11] MEDS: BLOOD SUGAR DIAGNOSTIC 1 EACH STRIP VI SCH ×4 (06:54→21:16)
[2023-04-11 07:16] LABS: BASOPHILS % (AUTO) 0.7 % (0.0-2.0); EOSINOPHILS % (AUTO) 0.6 % (0.0-7.0); HEMATOCRIT 32.6 % (36.7-47.1); HEMOGLOBIN 10.9 g/dL (12.5-16.3); LYMPHOCYTES # (AUTO) 0.8 K/uL (0.8-4.8); LYMPHOCYTES % (AUTO) 17.5 % (20.5-51.5); MEAN CORPUSCULAR HEMOGLOBIN 30.6 uug (23.8-33.4); MEAN CORPUSCULAR HGB CONC 33 g/dL (32.5-36.3); MEAN CORPUSCULAR VOLUME 91.7 fL (73.0-96.2); MONOCYTES # (AUTO) 0.7 K/uL (0.1-1.30); MONOCYTES % (AUTO) 15.5 % (0.0-11.0); NEUTROPHILS % (AUTO) 65.7 % (38.5-71.5); PLATELET COUNT (AUTO) 116 K/uL (152-348); RED BLOOD CELL COUNT(AUTO) 3.56 MIL/uL (4.06-5.63); RED CELL DISTRIBUTION WIDTH 14.5 % (12.1-16.2); WHITE BLOOD COUNT (AUTO) 4.5 K/uL (3.6-10.2)
[2023-04-11 07:23] LABS: THYROID STIMULATING HORMONE 2.922 mIU/mL (0.358-3.740)
[2023-04-11 07:39] LABS: ALANINE AMINOTRANSFERASE 18 U/L (16-63); ALBUMIN 3.4 g/dL (3.4-5.0); ALKALINE PHOSPHATASE 55 U/L (50-136); ASPARTATE AMINOTRANSFERASE 20 U/L (15-37); BILIRUBIN,TOTAL 0.4 mg/dL (0.2-1.0); CARBON DIOXIDE 25 mmol/L (21-32); CHLORIDE 102 mmol/L (98-107); CHOLESTEROL 122 mg/dL (<200); CREATININE 1.9 mg/dL (0.6-1.3); FERRITIN 168 ng/mL (26-388); GLUCOSE 111 mg/dL (74-106); HDL CHOLESTEROL 52 mg/dL (40-60); MAGNESIUM 2.3 mg/dL (1.8-2.4); PHOSPHOROUS 3.2 mg/dL (2.5-4.9); POTASSIUM 4.2 mmol/L (3.5-5.1); SODIUM SERUM 137 mmol/L (136-145); TRIGLYCERIDES 75 MG/DL (30-150); UREA NITROGEN, BLOOD 29 mg/dL (7-18)
[2023-04-11 08:07] LABS: CALCIUM 8.7 mg/dL (8.5-10.1)
[2023-04-11] MEDS ORDERED: MISCELLANEOUS MED XX PRN (08:15)
[2023-04-11 08:40] VITALS: BP 144/91; TEMP 99.1; O2SAT 98
[2023-04-11] MEDS: ESCITALOPRAM OXALATE 10 MG TABLET PO SCH (08:41)
[2023-04-11] MEDS: HEPARIN SODIUM,PORCINE 5,000 UNITS/ML VIAL SQ SCH ×2 (08:42→20:39)
[2023-04-11] MEDS: CARBIDOPA/LEVODOPA 25-100MG TABLET PO SCH ×3 (08:42→17:51)
[2023-04-11] MEDS: AMLODIPINE 2.5 MG TABLET PO SCH (08:43)
[2023-04-11] MEDS ORDERED: DAPAGLIFLOZIN PROPANEDIOL 5 MG TABLET PO SCH (09:00)
[2023-04-11] MEDS ORDERED: Medication Not On Formulary EA (Dapagliflozin Propanediol (Farxiga) 5 MG) PO SCH (09:00)
[2023-04-11] MEDS ORDERED: Linaclotide (Linzess) 290 MCG) PO SCH (09:00)
[2023-04-11 12:00] VITALS: BP 123/79; TEMP 98; O2SAT 97
[2023-04-11 14:17] LABS: BAND % (MANUAL) 2 % (0-10); LYMPHOCYTES % (MANUAL) 14 % (20-40); MONOCYTES % (MANUAL) 13 % (2-10); NEUTROPHILS % (MANUAL) 67 % (42-75)
[2023-04-11 14:18] LABS: PLATELET ESTIMATE DECREASED; REACTIVE LYMPHOCYTES 4 % (0-0)
[2023-04-11] MEDS ORDERED: REMDESIVIR (CHARGED) 200 MG in IV NORMAL SALINE 210 ML IV ONE (15:00)
[2023-04-11 16:00] VITALS: BP 136/70; TEMP 98.2; O2SAT 98
[2023-04-11] MEDS: DOCUSATE SODIUM 100 MG CAPSULE PO SCH (20:36)
[2023-04-11] MEDS: SIMVASTATIN 40 MG TABLET PO SCH (20:38)
[2023-04-11] MEDS ORDERED: FLUCONAZOLE 100 MG TABLET PO SCH (21:00)
[2023-04-11 21:21] VITALS: BP 144/91; TEMP 98; O2SAT 96
[2023-04-12 00:01] VITALS: BP 148/68; TEMP 98; O2SAT 99
[2023-04-12 05:40] VITALS: BP 97/54; TEMP 99.2; O2SAT 98
[2023-04-12] MEDS: PANTOPRAZOLE SODIUM 40 MG TABLET.DR PO SCH (06:03)
[2023-04-12 06:48] LABS: BASOPHILS % (AUTO) 0.6 % (0.0-2.0); EOSINOPHILS # (AUTO) 0.1 K/uL (0.0-0.7); EOSINOPHILS % (AUTO) 2.8 % (0.0-7.0); HEMATOCRIT 33.9 % (36.7-47.1); HEMOGLOBIN 11.3 g/dL (12.5-16.3); LYMPHOCYTES # (AUTO) 1.9 K/uL (0.8-4.8); LYMPHOCYTES % (AUTO) 43.1 % (20.5-51.5); MEAN CORPUSCULAR HEMOGLOBIN 30.7 uug (23.8-33.4); MEAN CORPUSCULAR HGB CONC 34 g/dL (32.5-36.3); MEAN CORPUSCULAR VOLUME 91.6 fL (73.0-96.2); MONOCYTES # (AUTO) 0.7 K/uL (0.1-1.30); MONOCYTES % (AUTO) 15.5 % (0.0-11.0); NEUTROPHILS # (AUTO) 1.7 K/uL (1.8-8.9); PLATELET COUNT (AUTO) 114 K/uL (152-348); RED CELL DISTRIBUTION WIDTH 14.2 % (12.1-16.2); WHITE BLOOD COUNT (AUTO) 4.5 K/uL (3.6-10.2)
[2023-04-12 07:01] LABS: CALCIUM 8.6 mg/dL (8.5-10.1); CARBON DIOXIDE 28 mmol/L (21-32); CHLORIDE 105 mmol/L (98-107); CREATININE 1.8 mg/dL (0.6-1.3); GLUCOSE 106 mg/dL (74-106); MAGNESIUM 2.2 mg/dL (1.8-2.4); PHOSPHOROUS 4.4 mg/dL (2.5-4.9); SODIUM SERUM 140 mmol/L (136-145); UREA NITROGEN, BLOOD 28 mg/dL (7-18)
[2023-04-12] MEDS: BLOOD SUGAR DIAGNOSTIC 1 EACH STRIP VI SCH ×4 (07:30→21:36)
[2023-04-12] MEDS: ESCITALOPRAM OXALATE 10 MG TABLET PO SCH (09:28)
[2023-04-12] MEDS: CARBIDOPA/LEVODOPA 25-100MG TABLET PO SCH ×3 (09:28→17:17)
[2023-04-12] MEDS: AMLODIPINE 2.5 MG TABLET PO SCH (09:48)
[2023-04-12] MEDS: HEPARIN SODIUM,PORCINE 5,000 UNITS/ML VIAL SQ SCH ×2 (09:50→21:21)
[2023-04-12 10:27] LABS: ALBUMIN 3.1 g/dL (3.4-5.0); BILIRUBIN,DIRECT 0.1 mg/dL (0.0-0.2); BILIRUBIN,TOTAL 0.3 mg/dL (0.2-1.0); TOTAL PROTEIN, SERUM 6.5 g/dL (6.4-8.2)
[2023-04-12 11:22] VITALS: BP 126/82; TEMP 97.6; O2SAT 96
[2023-04-12 14:23] LABS: LYMPHOCYTES % (MANUAL) 46 % (20-40); MONOCYTES % (MANUAL) 11 % (2-10); NEUTROPHILS % (MANUAL) 39 % (42-75)
[2023-04-12 14:24] LABS: EOSINOPHILS % (MANUAL) 1 % (0-8)
[2023-04-12] MEDS: REMDESIVIR (CHARGED) 100 MG in IV NORMAL SALINE 100 ML IV SCH (14:57)
[2023-04-12 16:07] VITALS: BP 123/88; TEMP 97.7; O2SAT 97
[2023-04-12] MEDS: DOCUSATE SODIUM 100 MG CAPSULE PO SCH (21:21)
[2023-04-12] MEDS: SIMVASTATIN 40 MG TABLET PO SCH (21:21)
[2023-04-12 21:36] VITALS: BP 99/47; TEMP 98.2; O2SAT 97
[2023-04-13 04:00] VITALS: BP 109/60; TEMP 98.1; O2SAT 99
[2023-04-13] MEDS: PANTOPRAZOLE SODIUM 40 MG TABLET.DR PO SCH (06:39)
[2023-04-13] MEDS: BLOOD SUGAR DIAGNOSTIC 1 EACH STRIP VI SCH ×4 (06:43→21:05)
[2023-04-13 07:13] LABS: BASOPHILS % (AUTO) 0.4 % (0.0-2.0); EOSINOPHILS # (AUTO) 0.2 K/uL (0.0-0.7); EOSINOPHILS % (AUTO) 4.5 % (0.0-7.0); HEMATOCRIT 33.6 % (36.7-47.1); HEMOGLOBIN 11.3 g/dL (12.5-16.3); LYMPHOCYTES # (AUTO) 1.9 K/uL (0.8-4.8); LYMPHOCYTES % (AUTO) 47.7 % (20.5-51.5); MEAN CORPUSCULAR HEMOGLOBIN 30.8 uug (23.8-33.4); MEAN CORPUSCULAR HGB CONC 34 g/dL (32.5-36.3); MEAN CORPUSCULAR VOLUME 91.8 fL (73.0-96.2); MONOCYTES # (AUTO) 0.5 K/uL (0.1-1.30); MONOCYTES % (AUTO) 11.6 % (0.0-11.0); NEUTROPHILS # (AUTO) 1.5 K/uL (1.8-8.9); NEUTROPHILS % (AUTO) 35.8 % (38.5-71.5); PLATELET COUNT (AUTO) 128 K/uL (152-348); RED BLOOD CELL COUNT(AUTO) 3.66 MIL/uL (4.06-5.63); RED CELL DISTRIBUTION WIDTH 14.5 % (12.1-16.2); WHITE BLOOD COUNT (AUTO) 4.1 K/uL (3.6-10.2)
[2023-04-13 07:26] LABS: ALANINE AMINOTRANSFERASE 8 U/L (16-63); ALKALINE PHOSPHATASE 46 U/L (50-136); ASPARTATE AMINOTRANSFERASE 17 U/L (15-37); BILIRUBIN,DIRECT 0.1 mg/dL (0.0-0.2); BILIRUBIN,TOTAL 0.3 mg/dL (0.2-1.0); CALCIUM 8.5 mg/dL (8.5-10.1); CARBON DIOXIDE 26 mmol/L (21-32); CHLORIDE 103 mmol/L (98-107); CREATININE 1.7 mg/dL (0.6-1.3); GLUCOSE 89 mg/dL (74-106); MAGNESIUM 2.2 mg/dL (1.8-2.4); PHOSPHOROUS 4.5 mg/dL (2.5-4.9); POTASSIUM 4.1 mmol/L (3.5-5.1); SODIUM SERUM 138 mmol/L (136-145); TOTAL PROTEIN, SERUM 6.3 g/dL (6.4-8.2); UREA NITROGEN, BLOOD 33 mg/dL (7-18)
[2023-04-13 07:27] LABS: DIFFERENTIAL COMMENT 1
[2023-04-13] MEDS: CARBIDOPA/LEVODOPA 25-100MG TABLET PO SCH ×3 (10:27→17:12)
[2023-04-13] MEDS: ESCITALOPRAM OXALATE 10 MG TABLET PO SCH (10:27)
[2023-04-13] MEDS: HEPARIN SODIUM,PORCINE 5,000 UNITS/ML VIAL SQ SCH ×2 (10:29→20:56)
[2023-04-13] MEDS: AMLODIPINE 2.5 MG TABLET PO SCH (10:51)
[2023-04-13 11:27] VITALS: BP 123/76; TEMP 98.5; O2SAT 97
[2023-04-13 15:10] VITALS: BP 114/78; TEMP 98.4; O2SAT 97
[2023-04-13] MEDS: REMDESIVIR (CHARGED) 100 MG in IV NORMAL SALINE 100 ML IV SCH (15:39)
[2023-04-13 20:32] VITALS: BP 107/63; TEMP 97.8; O2SAT 97
[2023-04-13] MEDS: DOCUSATE SODIUM 100 MG CAPSULE PO SCH (20:55)
[2023-04-13] MEDS: SIMVASTATIN 40 MG TABLET PO SCH (20:55)
[2023-04-14 04:45] VITALS: BP 153/88; TEMP 97.7; O2SAT 98
[2023-04-14] MEDS: PANTOPRAZOLE SODIUM 40 MG TABLET.DR PO SCH (06:31)
[2023-04-14] MEDS: BLOOD SUGAR DIAGNOSTIC 1 EACH STRIP VI SCH ×2 (06:44→11:30)
[2023-04-14 07:14] LABS: BASOPHILS % (AUTO) 0.4 % (0.0-2.0); EOSINOPHILS # (AUTO) 0.2 K/uL (0.0-0.7); EOSINOPHILS % (AUTO) 4.4 % (0.0-7.0); HEMATOCRIT 34.3 % (36.7-47.1); HEMOGLOBIN 11.5 g/dL (12.5-16.3); LYMPHOCYTES # (AUTO) 1.7 K/uL (0.8-4.8); LYMPHOCYTES % (AUTO) 46.8 % (20.5-51.5); MEAN CORPUSCULAR HEMOGLOBIN 30.4 uug (23.8-33.4); MEAN CORPUSCULAR HGB CONC 33 g/dL (32.5-36.3); MEAN CORPUSCULAR VOLUME 91.1 fL (73.0-96.2); MONOCYTES # (AUTO) 0.4 K/uL (0.1-1.30); MONOCYTES % (AUTO) 9.9 % (0.0-11.0); NEUTROPHILS # (AUTO) 1.4 K/uL (1.8-8.9); NEUTROPHILS % (AUTO) 38.5 % (38.5-71.5); PLATELET COUNT (AUTO) 131 K/uL (152-348); RED BLOOD CELL COUNT(AUTO) 3.77 MIL/uL (4.06-5.63); RED CELL DISTRIBUTION WIDTH 14.2 % (12.1-16.2); WHITE BLOOD COUNT (AUTO) 3.6 K/uL (3.6-10.2)
[2023-04-14 07:24] LABS: DIFFERENTIAL COMMENT 1
[2023-04-14 07:30] LABS: CALCIUM 8.8 mg/dL (8.5-10.1); CARBON DIOXIDE 23 mmol/L (21-32); CHLORIDE 103 mmol/L (98-107); CREATININE 1.5 mg/dL (0.6-1.3); GLUCOSE 92 mg/dL (74-106); MAGNESIUM 2.2 mg/dL (1.8-2.4); PHOSPHOROUS 4.6 mg/dL (2.5-4.9); POTASSIUM 4.1 mmol/L (3.5-5.1); SODIUM SERUM 136 mmol/L (136-145); UREA NITROGEN, BLOOD 37 mg/dL (7-18)
[2023-04-14] MEDS: ESCITALOPRAM OXALATE 10 MG TABLET PO SCH (09:20)
[2023-04-14] MEDS: CARBIDOPA/LEVODOPA 25-100MG TABLET PO SCH (09:21)
[2023-04-14] MEDS: HEPARIN SODIUM,PORCINE 5,000 UNITS/ML VIAL SQ SCH (09:23)
[2023-04-14] MEDS: AMLODIPINE 2.5 MG TABLET PO SCH (09:37)
[2023-04-14 11:00] VITALS: BP 91/56; TEMP 98.2; O2SAT 95
[2023-04-15] MEDS ORDERED: ERGOCALCIFEROL 50,000 UNIT CAPSULE PO SCH (09:00)
== END 2023-04-14 12:30 | disposition home or self-care (01) | DRG 177 ==
LOC: ER 05:55 → TELE3 09:02 → MEDSURG3 04-12 10:24
PROVIDERS: ADMIT Internal Medicine; ATTEND Internal Medicine
PROC: XW033E5 Introduction of Remdesivir Anti-infective into Peripheral Vein, Percutaneous Approach, New Technology Group 5 (ICD-10-PCS; principal; 2023-04-11)
DX: U07.1 COVID-19 (principal); G92.8 Other toxic encephalopathy; N17.0 Acute kidney failure with tubular necrosis; J12.82 Pneumonia due to coronavirus disease 2019; B37.49 Other urogenital candidiasis; I67.89 Other cerebrovascular disease; Z74.09 Other reduced mobility; D64.9 Anemia, unspecified; R79.89 Other specified abnormal findings of blood chemistry; I12.9 Hypertensive chronic kidney disease with stage 1 through stage 4 chronic kidney disease, or unspecified chronic kidney disease; N18.2 Chronic kidney disease, stage 2 (mild); E11.22 Type 2 diabetes mellitus with diabetic chronic kidney disease; Z79.84 Long term (current) use of oral hypoglycemic drugs; G20.A1 Parkinson's disease without dyskinesia, without mention of fluctuations; Z79.899 Other long term (current) drug therapy; Z87.01 Personal history of pneumonia (recurrent); E66.9 Obesity, unspecified; Z68.26 Body mass index [BMI] 26.0-26.9, adult; E78.5 Hyperlipidemia, unspecified
CPT/HCPCS: 36415; 70030-TC; 70450; 71045; 76770; 83605; 83735; 84100; 84443; 84484; 85025; 85610; 85730; 87040; 93005; A4606; A4663; C1758; G0378; J0248; J1450; J1644; J1815; J7040